=== PATIENT | female | born 1965 | race Caucasian/White ===

== ENCOUNTER → 2016-09-01 | Outpatient (CLI) | payer OTHER ==
[~2016-09-01] MED LIST: BACTRIM DS TABL1 TAB PO; CELEXA PO; FLEXERIL; PROZAC; VICODIN PO; ZITHROMAX PO
--- NOTE | ~2016-09-01 | MY11 ---
[facility] A Service of [facility] RADIOLOGY TEXT RESULTS PATIENT: DURGA GOFF LOCATION: [facility] : 61 UNIT #: [id number] AGE: [address]: AJCK HERRON MD SEX: F ORDER DR: [id number] [facility] [address] [place], [place] [address] [id number] O MR#: [id number] Acc #: [id number] NAME: DURGA GOFF. : 1965 SEX: F STUDY DATE/TIME: 09/01/2016 12:53 UNIT: [facility] ROOM: STUDY DESCRIPTION: MY Mammogram Screening Dig Steve Attending Physician: Jack Herron M.D. Ordering Physician: Jack Herron M.D. Primary Care Physician: Jack Herron M.D. MEDICAL IMAGING REPORT This report is preliminary unless electronic signature is present EXAM Digital screening mammogram 09/01/2016 HISTORY 50-year-old woman. No risk elevation. Annual screen. COMPARISON Mammograms date to 09/28/2006 with most recent screening. COMPARISON 02/22/2013 FINDINGS Digital imaging of each breast was completed utilizing screening protocol. Review includes FDA-approved CAD device. Breast parenchyma is moderately-dense with scattered fibroglandular opacities bilaterally. Stable oval 1.7 x 2.3 cm mass centrally located left breast. Characteristics favor a fibroadenoma. Ultrasound could confirm this. I see no interval-occurring mass or suspicious mass characteristics. There are no suspicious microcalcifications and no architectural distortion. Mild subareolar duct prominence is noted in each breast. IMPRESSION Stable benign mammogram. Annual screening recommended. Patient's over the age of 40 are entered into a reminder system with target due date for the next mammogram. BIRADS: 2 Benign findings Dictated by... Damion Vela M.D. [facility] A Service of [facility] RADIOLOGY TEXT RESULTS PATIENT: DURGA GOFF LOCATION: [facility] : 61 UNIT #: [id number] AGE: [address]: JACK HERRON MD SEX: F ORDER DR: THIS IS AN ELECTRONICALLY VERIFIED REPORT Damion Vela M.D. at 09/02/2016 8:04 AM BEAR/benny TD: 09/01/2016 16:38 JOB #: [id number] MEDICAL IMAGING REPORT Page 1 of 1 COPY
== END | disposition home or self-care (01) ==
LOC: CWCC 12:15
DX: Z12.31 Encounter for screening mammogram for malignant neoplasm of breast (principal)
CPT/HCPCS: G0202

== ENCOUNTER → 2016-10-15 17:03 | Emergency (ER) | payer OTHER | END | disposition home or self-care (01) | LOC: SED 17:03 | DX: K08.89 Other specified disorders of teeth and supporting structures (principal); G89.18 Other acute postprocedural pain; I10 Essential (primary) hypertension; F17.210 Nicotine dependence, cigarettes, uncomplicated; M79.7 Fibromyalgia; Z79.899 Other long term (current) drug therapy | CPT/HCPCS: 99282 ==

== ENCOUNTER → 2017-02-02 | Outpatient (CLI) | payer OTHER ==
--- NOTE | ~2017-02-02 | CR278 ---
[facility] A Service of [facility] RADIOLOGY TEXT RESULTS PATIENT: DURGA GOFF LOCATION: [facility] : 61 UNIT #: [id number] AGE: [address]: JACK HERRON MD SEX: F ORDER DR: [id number] [facility] [address] [place], [place] [address] [id number] O MR#: [id number] Acc #: [id number] NAME: DURGA GOFF. : 1965 SEX: F STUDY DATE/TIME: 02/02/2017 15:36 UNIT: [facility] ROOM: STUDY DESCRIPTION: CR Wrist 2 View Lt Attending Physician: Jack Herron M.D. Referring Physician: Jack Herron M.D. Ordering Physician: Jack Herron M.D. Primary Care Physician: Jack Herron M.D. MEDICAL IMAGING REPORT This report is preliminary unless electronic signature is present EXAM Left wrist 3 views 02/02/2017. HISTORY Left wrist pain anteriorly, radiating posteriorly for 2 weeks, with no known injury. FINDINGS Left wrist evaluation in multiple projections shows normal mineralization of the bony structures about the wrist and satisfactory articular relationship of the radius and ulna to the proximal carpal row and of the distal carpal segments to the metacarpal bases. There is no indication of fracture or dislocation, and no soft tissue radiopaque foreign body is present. No congenital defects are apparent. IMPRESSION Normal left wrist. Dictated by... John Lema M.D. THIS IS AN ELECTRONICALLY VERIFIED REPORT John Lema M.D. at 02/03/2017 2:15 PM KRT/gz TD: 02/03/2017 07:57 JOB #: [id number] MEDICAL IMAGING REPORT Page 1 of 1 COPY
== END | disposition home or self-care (01) ==
LOC: CRAD 15:13
DX: M25.532 Pain in left wrist (principal)
CPT/HCPCS: 73100